=== PATIENT | female | born 1995 | race Caucasian/White ===

== ENCOUNTER 2022-03-21 19:02 | Emergency (ER) | payer OTHER, SELFPAY ==
[2022-03-21 23:33] LABS: HBSAB Concentration 307.74 mIU/mL; HIV (1/2) Antibody/Antigen Non-Reactive (NonReactive); HIV 1/2 INDEX 0.09 S/CO (<1.00); Hep B Surf AB Reactive (NonReactive); Hep C IgG Ab Non-Reactive (NonReactive); Hep C Index 0.04 S/CO (0-0.79)
== END 2022-03-21 19:50 | disposition home or self-care (01) ==
LOC: ERS 19:02
DX: Z77.21 Contact with and (suspected) exposure to potentially hazardous body fluids (principal)
CPT/HCPCS: 86706; 86803; 87389; 99283

== ENCOUNTER 2022-04-27 16:20 | Outpatient (CLI) | payer OTHER | END 2022-04-27 16:21 | disposition home or self-care (01) | LOC: SCSRAD 16:20 | PROVIDERS: ATTEND Nurse Practitioner Family | DX: R07.9 Chest pain, unspecified (principal); V89.2XXA Person injured in unspecified motor-vehicle accident, traffic, initial encounter | CPT/HCPCS: 71046 ==